=== PATIENT | male | born 1950 | race Caucasian/White ===

== ENCOUNTER → 2021-05-12 | Outpatient (CLI) | payer MEDICARE ==
[~2021-05-12] VITALS: Ht 193 cm; Wt 136.4 kg
[~2021-05-12] MED LIST: ASPIRIN 32325 MG/TA1 PO; CARDIZEM LA120 MG PO; FLOMAX 0.40.4 MG/CAP PO; FLONASEALLERGY NS; MULTAQ400 MG PO; ZESTRIL 5MG5 MG PO; ZYRTEC 10MG10 MG PO
[2021-05-12 09:37] VITALS: BP 154/76; PULSE 73; TEMP 98.1
[2021-05-12 11:00] VITALS: BP 165/76; PULSE 79
== END ==
LOC: COL.RAD 09:20
DX: M54.50 Low back pain, unspecified (principal)
CPT/HCPCS: J3301

== ENCOUNTER → 2021-07-25 | Outpatient (CLI) | payer MEDICARE, OTHER ==
[~2021-07-25] VITALS: Ht 193 cm; Wt 135.0 kg
[2021-07-25 13:34] VITALS: BP 143/72; PULSE 81; TEMP 97.6
[2021-07-25 14:15] VITALS: BP 122/62; PULSE 79
== END ==
LOC: COL.RAD 12:51
DX: M54.50 Low back pain, unspecified (principal); I71.4 Abdominal aortic aneurysm, without rupture
CPT/HCPCS: J3301

== ENCOUNTER → 2022-05-10 | Outpatient (CLI) | payer MEDICARE, OTHER | LOC: MHCPAIN 14:37 | DX: M54.50 Low back pain, unspecified (principal); M51.36 Other intervertebral disc degeneration, lumbar region; M47.816 Spondylosis without myelopathy or radiculopathy, lumbar region; R20.2 Paresthesia of skin | CPT/HCPCS: G0463 ==

== ENCOUNTER → 2022-06-07 | Outpatient (CLI) | payer MEDICARE, OTHER | LOC: MHCPAIN 14:25 | DX: M54.50 Low back pain, unspecified (principal); M51.36 Other intervertebral disc degeneration, lumbar region; M47.816 Spondylosis without myelopathy or radiculopathy, lumbar region; R20.2 Paresthesia of skin | CPT/HCPCS: G0463 ==

== ENCOUNTER → 2023-04-24 | Outpatient (CLI) | payer MEDICARE, OTHER | LOC: MHCPAIN 09:10 | DX: M54.50 Low back pain, unspecified (principal); M47.816 Spondylosis without myelopathy or radiculopathy, lumbar region | CPT/HCPCS: G0463 ==

== ENCOUNTER → 2023-07-24 | Outpatient (CLI) | payer MEDICARE, OTHER | LOC: MHCPAIN 09:43 | DX: M54.50 Low back pain, unspecified (principal); M47.816 Spondylosis without myelopathy or radiculopathy, lumbar region | CPT/HCPCS: G0463 ==